=== PATIENT | male | born 1985 | race Caucasian/White ===

== ENCOUNTER 2023-12-01 07:56 | Outpatient (OUT) | payer OTHER, SELFPAY ==
[2023-12-01 09:14] LABS: Anion Gap 14.2; BUN Creatinine Ratio 4.5; Calcium 8.6 mg/dL (8.5-10.1); Carbon Dioxide 25.2 mmol/L (21.0-32.0); Chloride 102 mmol/L (98-107); Estimated GFR (African America >60 (>=60); Estimated GFR (Non-African Ame >60 (>=60); Glucose 96 mg/dL (74-106); Potassium 3.4 mmol/L (3.5-5.1); Sodium 138 mmol/L (136-145)
[2023-12-01 09:39] LABS: INR 1.03; Partial Thromboplastin Time 27.1 sec (22.3-36.2); Prothrombin Time 10.9 sec (9.0-11.6)
[2023-12-01 09:54] LABS: Basophils Percent Auto 0.5 % (0.2-2.0); Eosinophils Absolute Auto 0.1 10^3/uL (0.0-0.7); Eosinophils Percent Auto 1.2 % (0.9-7.0); Hematocrit 42.4 % (42.0-54.0); Hemoglobin 14.7 g/dL (14.0-18.0); Immature Granulocytes Abs Auto 0.03 10^3/uL (0.00-0.03); Immature Granulocytes Pct Auto 0.4 % (0.0-0.5); Lymphocytes Absolute Auto 2.7 10^3/uL (1.2-3.8); Mean Corpuscular HGB Conc 34.7 g/dL (29.9-35.2); Mean Corpuscular Hemoglobin 30.6 pg (25.9-34.0); Mean Corpuscular Volume 88.1 fL (80.0-94.0); Mean Platelet Volume 10.7 fL (9.5-13.5); Monocytes Absolute Auto 0.6 10^3/uL (0.3-0.8); Monocytes Percent Auto 6.9 % (1.7-12.0); Platelet Count 293 10^3/uL (150-450); Red Blood Count 4.81 10^6/uL (4.70-6.10); Red Cell Distribution Width 12.3 % (11.0-15.0); White Blood Count 8.5 10^3/uL (4.0-11.0)
== END 2023-12-01 07:57 | disposition home or self-care (01) ==
PROVIDERS: PCP Family Medicine; Visit Provider Urology
DX: Z01.812 Encounter for preprocedural laboratory examination (principal); Z01.810 Encounter for preprocedural cardiovascular examination; N47.1 Phimosis; F32.A Depression, unspecified; F17.210 Nicotine dependence, cigarettes, uncomplicated
CPT/HCPCS: 80048; 85025; 85610; 85730

== ENCOUNTER 2023-12-14 10:35 | Day surgery (SDC) | payer OTHER, SELFPAY ==
[2023-12-01 08:24] VITALS: BP 131/71; PULSE 71; RESP 20; TEMP 36.3; O2SAT 97; BMI 29.1
[2023-12-14] VITALS (11 sets, daily range): BP systolic 110–133; BP diastolic 65–95; PULSE 55–69; RESP 12–20; TEMP 36.1–36.3; O2SAT 95–99
[2023-12-14] MEDS: LACTATED RINGER'S SOLUTION 1,000 ML 50 ML IV ×2 (11:12→16:08)
[2023-12-14] MEDS: CEFAZOLIN SODIUM/DEXTROSE,ISO 1 GM/50 ML IV.SOLN IV (13:42)
[2023-12-14] MEDS: MINERAL OIL LIGHT STERILE 10 ML VIAL TOPICAL (14:26)
[2023-12-14] MEDS: BACITRACIN OINTMENT 28.4 GM TUBE 1 APPLIC TOPICAL (15:21)
--- NOTE | 2023-12-14 15:30 | P.URON_ITS ---
Urology Surgery Operative Note Operative Note Procedure Date: 12/14/23 Time Out Performed: yes Pre-op Diagnosis: Phimosis Post-op Diagnosis: same as pre-op Procedures performed: 1. Circumcision. Anesthesia: General-LMA Primary Surgeon: Khai De Oliveira Complications: None Estimated blood loss (mL): 5 Findings: Thick indurated friable foreskin. Specimens: Foreskin Indications for Procedures: This gentleman is uncircumcised and is having trouble with phimosis. He is getting cracking and splitting of his distal foreskin with erections. He is strongly desirous for circumcision. He has signed an informed consent for this procedure after all the risks were explained to him. Some of these risks include bleeding, infection, anesthesia, decreased penile sensation, erectile /sexual dysfunction, separation of skin edges and possible need for additional procedures. Detailed description of Procedure: The patient was brought to the operating room and placed on the operating room table in the supine position. SCDs were placed on the lower extremities and turned on and functioning during the entire case. Timeout was done by all parties in the room. We all agreed upon the patient's identification and the planned procedures for this patient. Genn. anesthesia was then administered. Genitalia were sterilely prepped and draped in usual fashion. I started by marking a line on the external foreskin surface over the sanders. I then used a 15 blade scalpel and made a circumscribing incision over this line. The foreskin was then retracted over the shaft. I then measured a line on the mucosal surface 5 mm proximal to the coronal sulcus. A similar circumscribing incision was then made. This sleeve of tissue was then sharply dissected circ umferentially and transected and then amputated and sent for permanent sections. The needle tip Bovie cautery was used to help with dissection and to coagulate any small bleeders. I then joined the edges of the foreskin together with 4-0 Vicryl dipped in mineral oil. First I placed a stay suture at the 12:00 and 6:00 positions. These were tagged and set aside. I then joined the edges in a running fashion using the same suture. Upon completion there was an excellent repair. Bacitracin ointment was placed over the incision. A Vaseline gauze was then placed over the incision. I then wrapped a plain gauze around the incision. This was then all wrapped with Coban. He was then transferred to a [facility] bed and wheeled to PACU in stable condition.
== END 2023-12-14 16:35 | disposition home or self-care (01) ==
PROVIDERS: PCP Family Medicine; Visit Provider Urology
PROC: (CPT 920; principal; 2023-12-14 11:50)
DX: N47.1 Phimosis (principal); F17.220 Nicotine dependence, chewing tobacco, uncomplicated; F32.A Depression, unspecified
CPT/HCPCS: 54161; 36415; 88304; J0690; J1100; J1885; J2405; J2704; J3010